=== PATIENT | female | born 1985 | race African-American/Black ===

== ENCOUNTER 2017-08-29 17:07 | Emergency (ER) | payer OTHER ==
[~2017-08-29] VITALS: Ht 170.2 cm; Wt 83.9 kg
[2017-08-30] MEDS ORDERED: ZOFRAN8 MG PO (05:02)
[2017-08-30] MEDS ORDERED: CIPRO500 MG PO (05:02)
[2017-08-30] MEDS ORDERED: PEPCID40 MG PO (05:02)
== END 2017-08-30 04:56 | disposition home or self-care (01) ==
LOC: ER 17:07
DX: K29.70 Gastritis, unspecified, without bleeding (principal); N39.0 Urinary tract infection, site not specified

== ENCOUNTER → 2017-08-31 | Emergency (ER) | payer OTHER ==
[~2017-08-31] VITALS: Ht 172.7 cm; Wt 84.8 kg
[~2017-08-31] MED LIST: CIPRO500 MG PO; PEPCID40 MG PO; ZOFRAN8 MG PO
== END | disposition left against medical advice (07) ==
LOC: ER 03:00
DX: N12 Tubulo-interstitial nephritis, not specified as acute or chronic (principal); K29.70 Gastritis, unspecified, without bleeding; N39.0 Urinary tract infection, site not specified